=== PATIENT | female | born 1950 ===

== ENCOUNTER 2017-08-30 09:54 | Outpatient (CLI) | payer SELFPAY | END 2017-08-30 23:59 | disposition home or self-care (01) | LOC: HW VAS 09:54 | DX: Z13.6 Encounter for screening for cardiovascular disorders (principal) ==

== ENCOUNTER 2019-05-28 05:01 | Outpatient (CLI) | payer SELFPAY | END 2019-05-28 23:59 | disposition home or self-care (01) | LOC: HW VAS 05:01 | DX: Z13.6 Encounter for screening for cardiovascular disorders (principal) ==

== ENCOUNTER 2025-01-12 09:04 | Emergency (ER) | payer MEDICARE, OTHER ==
[~2025-01-12] VITALS: Ht 172.7 cm; Wt 72.0 kg
--- NOTE | 2025-01-12 09:16 | Physician Documentation ---
History of Present Illness General Chief Complaint: Abdominal Pain Stated Complaint: FLANK PAIN Time Seen by MD: 09:16 History of Present Illness Initial Comments Patient is a 74-year-old female who states this morning she suddenly developed left-sided abdominal pain left lower quadrant at about 630. Patient states the pain radiated to her back and that she could not find a comfortable position. Patient states she was in her normal health last night without any complaints before going to bed. Patient denies any fevers or chills. The patient states she has never had any kidney stones in his never had similar pain syndrome. Patient complains of some nausea she did not have any vomiting. Patient was given 100 mcg of fentanyl EN route to the emergency department. Her pain was initially sharp and 8/10 in his now non-existent. Medication Reconciliation Allergies: Coded Allergies: codeine (Verified Allergy, Unknown, 01/12/25) Scheduled Cephalexin*Monohydrate* (Keflex*), 2 CAP PO BID Hydrocodone Bit/Acetaminophen (Hydrocodone-Apap 10-325 Tablet), 1 TABLET PO Q6H Tamsulosin Hcl* (Flomax*), 0.4 MG PO DAILY Scheduled PRN ONDANSETRON ODT 4mg tablet (Ondansetron Odt), 1 TABLET PO Q6H PRN for nausea/vomiting Review of Systems All Other Systems at this time: Reviewed and Negative Physical Exam Physical Exam Vital Signs: Source: Oral, Weight: 72.000 Physical Exam VITALS: Reviewed and as above. GENERAL: Alert, no apparent distress. HEENT: Normocephalic, atraumatic, PERRL, EOMI, dry mucosa, no erythema RESPIRATORY: Lungs clear, normal breath sounds, no respiratory distress. CHEST: No accessory muscle use, no retractions CV: Regular rate, rhythm, no edema, no murmur, No: JVD GI: Soft, non-tender, bowels sounds present, no rebound, guarding, or rigidity BACK: No CVA tenderness, or swelling MUSCULOSKELETAL: No deformities, no edema SKIN: Warm and dry, no rash NEURO: Oriented x4, No motor or sensory deficit PSYCH: Normal mood and affect, no agitation Progress Results/Orders Results/Orders Orders - OHLHUANG MORRIS MD Ct Abdomen Pelvis (01/12/25 10:10) Completed Orders - HUANG TORRES MD Cbc/Diff (01/12/25 09:14) BMP (01/12/25 09:14) Lipase (01/12/25 09:14) CMP (01/12/25 09:14) Procalcitonin (01/12/25 10:04) Ketorolac Trometh 15mg/Ml Vial (Toradol (01/12/25 10:10) Normal Saline 1000ml (0.9% Sodium Chlori (01/12/25 10:10) Ct Abdomen Pelvis (01/12/25 10:10) Normal Saline 1000ml (0.9% Sodium Chlori (01/12/25 11:10) Ua W/Microscopic, Cult If Ind (01/12/25 09:32) Cult Urine + [place] [address] (01/12/25 11:50) Vital Signs 01/12/25 01/12/25 01/12/25 01/12/25 09:06 09:21 09:30 10:19 Temp 97.7 97.7 Pulse 104 78 Resp 14 11 16 1 B/P (MAP) 165/104 165/104 (124) Pulse Ox 94 98 O2 Flow Rate 0 0 01/12/25 01/12/25 10:22 12:15 Temp 97.9 Pulse 80 86 Resp 14 16 B/P (MAP) 131/81 (98) 141/85 Pulse Ox 96 94 O2 Flow Rate 0 Laboratory Tests Test 01/12/25 09:26 01/12/25 09:32 White Blood Count 7.8 Red Blood Count 5.04 Hemoglobin 15.5 Hematocrit 46.2 H Mean Corpuscular Volume 91.7 Mean Corpuscular Hemoglobin 30.9 Mean Corpuscular Hemoglobin Concent 33.7 Red Cell Distribution Width 13.5 Platelet Count 368 Mean Platelet Volume 6.5 L Neutrophils (%) (Auto) 79.8 H Lymphocytes (%) (Auto) 13.5 L Monocytes (%) (Auto) 4.8 Eosinophils (%) (Auto) 1.1 Basophils (%) (Auto) 0.8 Neutrophils # (Auto) 6.2 Lymphocytes # (Auto) 1.1 Monocytes # (Auto) 0.4 Eosinophils # (Auto) 0.1 Basophils # (Auto) 0.1 CBC Comment Sodium Level 144 Potassium Level 4.3 Chloride Level 104 Carbon Dioxide Level 29.9 Anion Gap 10 Blood Urea Nitrogen 14 Creatinine 0.88 Estimated GFR/1.73 m2 63 BUN/Creatinine Ratio 15.9 Glucose Level 119 H Calcium Level 9.2 Total Bilirubin 0.4 Aspartate Amino Transf (AST/SGOT) 22 Alanine Aminotransferase (ALT/SGPT) 19 Alkaline Phosphatase 61 Total Protein 7.5 Albumin 3.9 Globulin 3.6 Albumin/Globulin Ratio 1.1 Lipase 28 Procalcitonin < 0.05 Chemistry Comments Urine Specimen Description Cln catch midstream Urine Color Brown Urine Clarity Turbid Urine pH Urine Specific [place] Urine Protein Urine Glucose (UA) Urine Ketones Urine Occult Blood Urine Nitrite Urine Bilirubin Urine Urobilinogen Urine Leukocyte Esterase Urine RBC Tntc Urine WBC 10-20 H Urine Squamous Epithelial Cells Few Urine Transitional Epithelial Cells Few Urine Bacteria None seen Urine Culture Indicated Indicated Volume Urine Centrifuged 10 ml Urine Comment See note Microbiology Date/Time Source Procedure Growth Status 01/12/25 11:50 Urine Clean Catch Midstream Urine Culture - Final Strep Agalactiae (Grp B) Complete EKG/XRAY/CT/US/VASC/MRI CT : Impression Patient: GARRICK BLAKELY Medical Record: [id number] [facility] : 1950, Age: 74 Sex: Female Location: ER Patient Status: [facility] ER Service Date/Time: 01/12/251009 Ordering Physician: HUANG TORRES MD Exam: CT ABDOMEN PELVIS Exam: CT CT ABDOMEN PELVIS History: abd pain Comparison Study: None Technique: Multidetector spiral CT of the abdomen was performed from lung bases to pubic symphysis. Imaging was performed without IV contrast. Axial, coronal and sagittal multiplanar reformats were obtained from the axial data set by the technologist. Radiation Dose : 1. Abdomen/Pelvis: CTDIvol 16 mGy, DLP 879 mGy*cm. Findings: Evaluation of solid organs is limited due to lack of intravenous contrast use. Lung Bases: No acute or significant lung base finding. Normal heart size. No pleural or pericardial effusion. Liver: The liver is normal in size. No focal lesions. Gallbladder and Biliary Tree: Unremarkable Spleen: Unremarkable Pancreas: The pancreas is grossly normal in appearance. Adrenal Glands: Unremarkable Kidneys: Kidneys are grossly normal without calculi or hydronephrosis. Bladder: Grossly unremarkable for degree of distention. Bowel: The stomach is grossly normal in appearance. Small bowel and colon are normal in caliber and distribution. Normal appendix. No diverticulitis. Ascites: Absent Lymphadenopathy: No mesenteric, retroperitoneal or periportal lymphadenopathy. Abdominal Wall and Mesentery: Unremarkable. Vasculature: The visualized abdominal aorta is normal in size and caliber. Evaluation of abdominal and pelvic vessels is limited due to lack of intravenous contrast. Pelvic Organs: Unremarkable Musculoskeletal: No aggressive focal bony lesions, acute fractures or dislocation. Moderate multilevel degenerative disc disease. 3 mm retrolisthesis of L1 on L2. No vertebral body fracture. IMPRESSION: 1. No acute abdominal or pelvic findings. Radiation optimization: All CT scans at this facility use at least one of these dose optimization techniques: automated exposure control mA and/or kV adjustment per patient size (includes targeted exams where dose is matched to clinical indication) or iterative reconstruction. Electronically Signed by:ANTOINETTE TRJEO MD Date & Time: 01/12/251049 Dictated by: ANTOINETTE TREJO MD Dictation date and time: 01/12/251049 Primary Care Provider: NO PRIMARY CARE PROVIDER cc: HUANG TORRES MD ~ Medical Decision Making Findings 74-year-old female with renal colic patient has a visualized 3-1/2 mm kidney stone on CT scan mid ureter the radiologist's read as negative but there is clearly a kidney stone present patient will be discharged with Zofran and [place] as well as Flomax and advised to follow up as an outpatient. The patient's CT imaging was reviewed by me, patient's prior hospitalizations were reviewed. The patient was treated with a dose of Toradol. The patient is comfortable and in no significant distress and desires discharge. The patient will be discharged on Flomax as well as given a prescription for Zofran as well as [place]. The p atient has been advised to return for worsening of her symptoms. The patient's pulse oximetry was interpreted as adequate normal. The patient was given a prescription for Keflex on the possibility she may have a urinary tract infection Departure Time of Disposition: 11:06 Disposition: 01 HOME / SELF CARE / HOMELESS Impression: Primary Impression: Renal colic Discharge Instructions: Renal Colic, [id number] Referrals: NO PRIMARY CARE PROVIDER (PCP) Prescriptions Cephalexin*Monohydrate* (Keflex*) 500 Mg Capsule 2 CAP PO BID, #20 CAP Prov: HUANG TORRES MD 01/12/25 ONDANSETRON ODT 4mg tablet (ONDANSETRON ODT) 4 Mg Tab.rapdis 1 TABLET PO Q6H PRN for nausea/vomiting, #12 TABLET Prov: HUANG TORRES MD 01/12/25 Tamsulosin Hcl* (Flomax*) 0.4 Mg Cap.sr.24h 0.4 MG PO DAILY, #10 CAP Prov: HUANG TORRES MD 01/12/25 Hydrocodone Bit/Acetaminophen (Hydrocodone-Apap 10-325 Tablet) 10mg/325mg Tablet 1 TABLET PO Q6H, #10 TABLET Prov: HUANG TORRES MD 01/12/25 Signature Scribe Signature: no scribe Attestation: The note accurately reflects work and decisions made by me.Huang Torres MD 01/16/25 07:49 HUANG TORRES MD Jan 12, 2025 09:16
[2025-01-12 09:44] LABS: MEAN PLATELET VOLUME 6.5 FL (7.4-10.4); RED CELL DISTRIBUTION WIDTH 13.5 % (11.5-14.5)
[2025-01-12 10:02] LABS: CREATININE 0.88 MG/DL (0.40-0.90); TOTAL CARBON DIOXIDE 29.9 MMOL/L (24-32); eCRCL 58 ML/MIN; eGFR 63 ML/MIN
[2025-01-12] MEDS: normal saline 1000ML IV soln IVB ONE ×2 (10:18→11:49)
[2025-01-12] MEDS: ketorolac trometh 15mg/ml vial 15 MG/ML ML IV ONE (10:19)
[2025-01-12] MEDS ORDERED: HYDR-3973 PO (10:48)
[2025-01-12] MEDS ORDERED: ONDA-243 PO (10:48)
[2025-01-12] MEDS ORDERED: TAMS-55 PO (10:48)
--- NOTE | 2025-01-12 10:53 | RADIOLOGY REPORT ---
Exam: CT CT ABDOMEN PELVIS History: abd pain Comparison Study: None Technique: Multidetector spiral CT of the abdomen was performed from lung bases to pubic symphysis. Imaging was performed without IV contrast. Axial, coronal and sagittal multiplanar reformats were obtained from the axial data set by the technologist. Radiation Dose : 1. Abdomen/Pelvis: CTDIvol 16 mGy, DLP 879 mGy*cm. Findings: Evaluation of solid organs is limited due to lack of intravenous contrast use. Lung Bases: No acute or significant lung base finding. Normal heart size. No pleural or pericardial effusion. Liver: The liver is normal in size. No focal lesions. Gallbladder and Biliary Tree: Unremarkable Spleen: Unremarkable Pancreas: The pancreas is grossly normal in appearance. Adrenal Glands: Unremarkable Kidneys: Kidneys are grossly normal without calculi or hydronephrosis. Bladder: Grossly unremarkable for degree of distention. Bowel: The stomach is grossly normal in appearance. Small bowel and colon are normal in caliber and distribution. Normal appendix. No diverticulitis. Ascites: Absent Lymphadenopathy: No mesenteric, retroperitoneal or periportal lymphadenopathy. Abdominal Wall and Mesentery: Unremarkable. Vasculature: The visualized abdominal aorta is normal in size and caliber. Evaluation of abdominal and pelvic vessels is limited due to lack of intravenous contrast. Pelvic Organs: Unremarkable Musculoskeletal: No aggressive focal bony lesions, acute fractures or dislocation. Moderate multilevel degenerative disc disease. 3 mm retrolisthesis of L1 on L2. No vertebral body fracture. IMPRESSION: 1. No acute abdominal or pelvic findings. Radiation optimization: All CT scans at this facility use at least one of these dose optimization techniques: automated exposure control mA and/or kV adjustment per patient size (includes targeted exams where dose is matched to clinical indication) or iterative reconstruction.
[2025-01-12 11:31] LABS: UA COLLECTION TYPE CLN CATCH MIDSTREAM
[2025-01-12 11:49] LABS: SQUAMOUS EPITHELIAL CELL,UR FEW /LPF (FEW)
[2025-01-12] MEDS ORDERED: CEPH-585 PO (11:55)
[2025-01-12 12:15] VITALS: BP 141/85; PULSE 86; RESP 16; TEMP 97.9; O2SAT 94
== END 2025-01-12 12:23 | disposition home or self-care (01) ==
LOC: ER 09:05
DX: N23 Unspecified renal colic (principal); Z88.5 Allergy status to narcotic agent; Z79.899 Other long term (current) drug therapy
CPT/HCPCS: 36415; 74176; 80053; 81001; 83690; 84145; 85025; 87088; 96361; 96374; 99285; J1885; J7030; 87077; 87186